=== PATIENT | male | born 1955 | race Caucasian/White ===

== ENCOUNTER → 2017-06-12 | Outpatient (CLI) | payer OTHER ==
[2017-06-12 09:15] LABS: AUTOMATED NEUTROPHIL # 3.3 TH/MM3 (1.8-7.7); BASOPHIL % 0.6 % (0.0-2.0); EOSINOPHIL # 0.1 TH/MM3 (0-0.4); EOSINOPHIL % 1.2 % (0.0-4.0); HEMATOCRIT 44.4 % (39.0-51.0); HEMO FLAGS DIFF FINAL; LYMPH % 25.9 % (9.0-44.0); LYMPHOCYTE # 1.4 TH/MM3 (1.0-4.8); MEAN CELL VOLUME 91.7 FL (80.0-100.0); MEAN CORPUSCULAR HEMOGLOBIN 32.2 PG (27.0-34.0); MEAN CORPUSCULAR HGB CONC 35.1 % (32.0-36.0); MONO % 10.5 % (0.0-8.0); NEUT % 61.8 % (16.0-70.0); PLATELET COUNT 217 TH/MM3 (150-450); RED BLOOD COUNT 4.84 MIL/MM3 (4.50-5.90); RED CELL DISTRIBUTION WIDTH 13.1 % (11.6-17.2); WHITE BLOOD COUNT 5.4 TH/MM3 (4.0-11.0)
[2017-06-12 10:38] LABS: BICARBONATE 24.5 MEQ/L (21.0-32.0); HDL CHOLESTEROL 66.8 MG/DL (40.0-60.0); INDIRECT BILIRUBIN 1.1 MG/DL (0.0-0.8); POTASSIUM 3.9 MEQ/L (3.5-5.1); TOTAL BILIRUBIN ADULT 1.4 MG/DL (0.2-1.0)
== END ==
LOC: CLAB 08:41
PROVIDERS: ATTEND Family Medicine
DX: Z00.00 Encounter for general adult medical examination without abnormal findings (principal)
CPT/HCPCS: 36415; 80048; 80061; 80076; 84153; 85025

== ENCOUNTER → 2017-07-03 | Outpatient (CLI) | payer OTHER ==
--- NOTE | 2017-07-03 14:01 | EKG ---
Date Performed: 07/03/2017 Time Performed: 08:54:18 PTAGE: 62 years EKG: Sinus rhythm . Short DE interval Inferior T wave changes are nonspecific Borderline ECG PREVIOUS TRACING : 10/31/2007 14.02 Compared to prior tracing no significant change DOCTOR: Manuelito Almeida Interpretating Date/Time 07/03/2017 13:58:40
== END ==
LOC: HCAV 07:45
PROVIDERS: ATTEND Family Medicine
DX: Z00.00 Encounter for general adult medical examination without abnormal findings (principal); R94.31 Abnormal electrocardiogram [ECG] [EKG]
CPT/HCPCS: 93005

== ENCOUNTER → 2017-07-16 | Outpatient (CLI) | payer OTHER ==
--- NOTE | 2017-07-18 10:04 | RSPPFT ---
DATE OF PROCEDURE: 07/16/17 COMMENTS: Spirometry with FVC of 5.4, FEV1 of 3.5, FEV1/FVC ratio at 66%. A non-significant response to acutely inhaled bronchodilator noted. Slow vital capacity is 91% of predicted. TLC is 100%. Diffusion capacity is 86%. IMPRESSION: 1. Mild airways obstruction. 2. No evidence of airways restriction. 3. Normal diffusion capacity. 4. Non-significant response to acutely inhaled bronchodilator.
== END ==
LOC: HRSP 13:07
PROVIDERS: ATTEND Family Medicine
DX: R93.8 Abnormal findings on diagnostic imaging of other specified body structures (principal); J98.8 Other specified respiratory disorders
CPT/HCPCS: 94060; 94726; 94729